=== PATIENT | female | born 1995 | race Caucasian/White ===

== ENCOUNTER → 2019-11-22 | Outpatient (CLI) | payer BC ==
[2019-11-22 10:49] LABS: HEMATOCRIT 37 % (35-52); HEMOGLOBIN 12.4 G/DL (11.5-16.0); MEAN CORPUSCULAR HEMOGLOBIN 30 PG (25-34); MEAN CORPUSCULAR HGB CONC 34 G/DL (32-36); MEAN CORPUSCULAR VOLUME 90 FL (80-99); WHITE BLOOD COUNT 9.6 10^3/uL (4.3-11.0)
[2019-11-22 10:50] LABS: BASOPHILS % (AUTO) 0 % (0-10); EOSINOPHILS % (AUTO) 2 % (0-10); LYMPHOCYTES # (AUTO) 1.6 X 10^3 (1.0-4.0); LYMPHOCYTES % (AUTO) 17 % (12-44); MEAN PLATELET VOLUME 11.9 FL (7.4-10.4); MONOCYTES # (AUTO) 0.5 X 10^3 (0.0-1.0); MONOCYTES % (AUTO) 5 % (0-12); NEUTROPHILS # (AUTO) 7.2 X 10^3 (1.8-7.8); NEUTROPHILS % (AUTO) 76 % (42-75); PLATELET COUNT 149 10^3/uL (130-400); RED CELL DISTRIBUTION WIDTH 11.9 % (10.0-14.5)
[2019-11-22 10:51] LABS: EOSINOPHILS # (AUTO) 0.2 10^3/uL (0.0-0.3)
== END ==
LOC: LAB FS 10:02
PROVIDERS: ATTEND Family Medicine
DX: Z34.00 Encounter for supervision of normal first pregnancy, unspecified trimester (principal)
CPT/HCPCS: 36415; 80055; 86703; 87088

== ENCOUNTER → 2019-12-20 | Outpatient (CLI) | payer BC | LOC: LABNPT 15:09 | PROVIDERS: ATTEND Family Medicine | DX: Z34.81 Encounter for supervision of other normal pregnancy, first trimester (principal); Z3A.00 Weeks of gestation of pregnancy not specified | CPT/HCPCS: 87491; 87591 ==

== ENCOUNTER → 2020-01-20 | Outpatient (CLI) | payer BC | LOC: LAB FS 10:02 | PROVIDERS: ATTEND Family Medicine | DX: O98.819 Other maternal infectious and parasitic diseases complicating pregnancy, unspecified trimester (principal) | CPT/HCPCS: 36415; 82105; 84702; 86336; 87491; 87591 ==

== ENCOUNTER → 2020-04-05 | Outpatient (CLI) | payer BC ==
[2020-04-05 09:40] LABS: HEMATOCRIT 34 % (35-52); HEMOGLOBIN 11.5 G/DL (11.5-16.0); MEAN CORPUSCULAR HEMOGLOBIN 32 PG (25-34); MEAN CORPUSCULAR HGB CONC 34 G/DL (32-36); MEAN CORPUSCULAR VOLUME 93 FL (80-99); MEAN PLATELET VOLUME 11.5 FL (7.4-10.4); NEUTROPHILS % (AUTO) 75 % (42-75); PLATELET COUNT 141 10^3/uL (130-400); WHITE BLOOD COUNT 10.4 10^3/uL (4.3-11.0)
[2020-04-05 09:41] LABS: BASOPHILS % (AUTO) 0 % (0-10); EOSINOPHILS # (AUTO) 0.3 10^3/uL (0.0-0.3); EOSINOPHILS % (AUTO) 3 % (0-10); LYMPHOCYTES # (AUTO) 1.7 X 10^3 (1.0-4.0); LYMPHOCYTES % (AUTO) 16 % (12-44); MONOCYTES # (AUTO) 0.6 X 10^3 (0.0-1.0); MONOCYTES % (AUTO) 5 % (0-12); NEUTROPHILS # (AUTO) 7.8 X 10^3 (1.8-7.8)
== END ==
LOC: LAB FS 08:58
PROVIDERS: ATTEND Family Medicine
DX: O09.893 Supervision of other high risk pregnancies, third trimester (principal); Z3A.00 Weeks of gestation of pregnancy not specified
CPT/HCPCS: 36415; 82950; 85025; 86780

== ENCOUNTER → 2020-06-01 | Outpatient (CLI) | payer BC | LOC: LAB FS 16:46 | PROVIDERS: ATTEND Family Medicine | DX: Z34.93 Encounter for supervision of normal pregnancy, unspecified, third trimester (principal); Z3A.00 Weeks of gestation of pregnancy not specified | CPT/HCPCS: 87081 ==

== ENCOUNTER 2020-06-14 05:36 | Outpatient (RCR) | payer BC ==
[~2020-06-14] VITALS: Ht 175.3 cm; Wt 86.8 kg
[2020-06-14] MEDS ORDERED: PNV1TABL9 PO (12:42)
== END 2020-06-14 12:48 | disposition home or self-care (01) ==
LOC: PREOP 05:36
PROVIDERS: ATTEND Obstetrics & Gynecology
DX: Z01.818 Encounter for other preprocedural examination (principal); O32.1XX0 Maternal care for breech presentation, not applicable or unspecified; Z3A.00 Weeks of gestation of pregnancy not specified

== ENCOUNTER → 2020-06-18 | Outpatient (CLI) | payer BC, MEDICAID ==
[~2020-06-18] MED LIST: ACHD5005 PO; DCS100C PO; IBUP-844 PO; PNV1TABL9 PO
== END ==
LOC: LAB FS 10:10
PROVIDERS: ATTEND Obstetrics & Gynecology
DX: Z01.812 Encounter for preprocedural laboratory examination (principal); O32.1XX0 Maternal care for breech presentation, not applicable or unspecified; Z3A.00 Weeks of gestation of pregnancy not specified; Z20.828 Contact with and (suspected) exposure to other viral communicable diseases
CPT/HCPCS: 87635

== ENCOUNTER 2020-06-20 06:05 | Inpatient (IN) | payer BC, MEDICAID ==
[~2020-06-20] VITALS: Ht 175.3 cm; Wt 88.9 kg
[2020-06-20] VITALS (8 sets, daily range): BP systolic 114–138; BP diastolic 72–95
--- NOTE | 2020-06-20 06:04 | NUR ---
BRI ALBRECHT presented to unit via ambulatory from ED, accompanied by staff and s.o., with c/o BREECH PRESENTATION for c/s. BRI ALBRECHT weighed, gowned, voided, and to bed. EFHM and TOCO applied, VS taken. BRI ALBRECHT oriented to bed controls, call light, TV, heat, and A/C controls.
[~2020-06-20 06:05] MED LIST changes: -ACHD5005 PO; +CITRIC ACID/SOB CIT (BICITRA) 30 ML UDC ONE; -DCS100C PO; +FAMOTIDINE 20MG/2ML IV (PEPCID) ONE; -IBUP-844 PO; +METOCLOPRAMIDE INJ 10 MG/2 ML (REGLAN) ONE; +ceFAZolin INJECTION 0 MG ONE
[2020-06-20] MEDS ORDERED: METOCLOPRAMIDE INJ 10 MG/2 ML (REGLAN) IV ONE (06:15)
[2020-06-20] MEDS ORDERED: LACTATED RINGERS 1,000 ML IV PRN (06:15)
[2020-06-20] MEDS ORDERED: FAMOTIDINE 20MG/2ML IV (PEPCID) IV ONE (06:15)
[2020-06-20] MEDS ORDERED: CITRIC ACID/SOB CIT (BICITRA) 30 ML UDC PO ONE (06:15)
[2020-06-20] MEDS ORDERED: CATHETER FLUSH 10 ML SYR IV PRN (06:15)
[2020-06-20] MEDS ORDERED: ceFAZolin INJECTION 1,000 MG in WATER (STERILE) FOR INJECTION 10 ML IV ONE (06:15)
[2020-06-20] MEDS: LACTATED RINGERS 1,000 ML IV PRN ×2 (06:40→07:15)
[2020-06-20 06:54] LABS: BASOPHILS % (AUTO) 0 % (0-10); EOSINOPHILS # (AUTO) 0.2 10^3/uL (0.0-0.3); EOSINOPHILS % (AUTO) 2 % (0-10); HEMATOCRIT 37 % (35-52); HEMOGLOBIN 12.3 g/dL (11.5-16.0); LYMPHOCYTES # (AUTO) 2.2 10^3/uL (1.0-4.0); LYMPHOCYTES % (AUTO) 16 % (12-44); MEAN CORPUSCULAR HEMOGLOBIN 31 pg (25-34); MEAN CORPUSCULAR HGB CONC 34 g/dL (32-36); MEAN CORPUSCULAR VOLUME 93 fL (80-99); MEAN PLATELET VOLUME 12.5 fL (9.0-12.2); MONOCYTES # (AUTO) 0.7 10^3/uL (0.0-1.0); MONOCYTES % (AUTO) 5 % (0-12); NEUTROPHILS # (AUTO) 10.5 10^3/uL (1.8-7.8); NEUTROPHILS % (AUTO) 77 % (42-75); PLATELET COUNT 135 10^3/uL (130-400); WHITE BLOOD COUNT 13.7 10^3/uL (4.3-11.0)
[2020-06-20] MEDS ORDERED: OXYTOCIN PRE-MIX DRIP 1,000 ML IV ONE (06:56)
[2020-06-20] MEDS ORDERED: KETOROLAC 30 MG/ML VIAL ONE (06:56)
[2020-06-20] MEDS ORDERED: ONDANSETRON 4 MG/2 ML (SDV) Z0FRAN ONE (06:56)
[2020-06-20] MEDS ORDERED: BUPIVACAINE 0.25% 30 ML (SENSORCAINE) VIAL ONE (06:56)
[2020-06-20] MEDS ORDERED: fentaNYL INJECTION 100 MCG/2 ML AMP ONE (07:07)
[2020-06-20] MEDS ORDERED: WATER (STERILE) FOR INJECTION 0 ML ONE (07:14)
--- NOTE | 2020-06-20 07:20 | History & Physical-OB ---
OB - Chief Complaint & HPI Date/Time Date of Admission: Date of Admission: Jun 20, 2020 at 06:05 Date seen by a Provider: Jun 20, 2020 Time Seen by a Provider: 07:05 Chief Complaint/History OB-Reason for Admission/Chief: Section Hx : 1 Hx Para: 0 Expected Date of Delivery: Jun 27, 2020 Gestational Age in Weeks: 39 Gestational Age in Days: 1 Indication for : malpresentation Admission Nurse Assessment Rev: Yes Allergies and Home Medications Allergies Coded Allergies: No Known Drug Allergies (Unverified , 06/20/20) Home Medications Pnv Cmb#21/Iron/Folic Acid 1 Each Tablet, 1 EACH PO DAILY, (Reported) Patient Home Medication List Home Medication List Reviewed: Yes OB - History Hx of Present Care: Yes Ultrasounds: Normal mid trimester US Obstetrical Complications: None Medical Complications: None Patient Past Medical History n/a Social History/Family History Recent Infectious Disease Expo: No Alcohol Use: Denies Use Recreational Drug Use: No Immunizations Date of Influenza Vaccine: Mar 29, 2020 OB - Admission Exam Physical Exam Vitals: Vital Signs 06/20/20 07:00 Temp 36.4 Pulse 71 Resp 18 B/P (MAP) 138/85 (102) Pulse Ox 99 O2 Delivery Room Air HEENT: NCAT Heart: Rhythm Normal Lungs: Clear Abdomen: Gravid Extremities: Normal Reflexes: Normal Accelerations: Accelerations Present Decelerations: No Decelerations Short Term Variability: Present Shelter Variability: Average (6-25) Contractions on Admission: >10 Minutes Apart Intensity: Mild Labs Laboratory Tests Test 06/20/20 06:40 Range/Units White Blood Count 13.7 H 4.3-11.0 10^3/uL Red Blood Count 3.94 3.80-5.11 10^6/uL Hemoglobin 12.3 11.5-16.0 g/dL Hematocrit 37 35-52 % Mean Corpuscular Volume 93 80-99 fL Mean Corpuscular Hemoglobin 31 25-34 pg Mean Corpuscular Hemoglobin Concent 34 32-36 g/dL Red Cell Distribution Width 12.2 10.0-14.5 % Platelet Count 135 130-400 10^3/uL Mean Platelet Volume 12.5 H 9.0-12.2 fL Immature Granulocyte % (Auto) 1 % Neutrophils (%) (Auto) 77 H 42-75 % Lymphocytes (%) (Auto) 16 12-44 % Monocytes (%) (Auto) 5 0-12 % Eosinophils (%) (Auto) 2 0-10 % Basophils (%) (Auto) 0 0-10 % Neutrophils # (Auto) 10.5 H 1.8-7.8 10^3/uL Lymphocytes # (Auto) 2.2 1.0-4.0 10^3/uL Monocytes # (Auto) 0.7 0.0-1.0 10^3/uL Eosinophils # (Auto) 0.2 0.0-0.3 10^3/uL Basophils # (Auto) 0.0 0.0-0.1 10^3/uL Immature Granulocyte # (Auto) 0.1 0.0-0.1 10^3/uL OB - Assessment/Plan/Diagnosis Assessment Assessment: section Admission Dx 24 yo @ 39 weeks Complete breech presentation Admission Status: Inpatient Order (span 2 midnights) Reason for Inpatient Admission: 39 week primary Plan Plan: Section TJ GONZALEZ DO Jun 20, 2020 07:20
--- NOTE | 2020-06-20 07:26 | Discharge Inst-Women's Service ---
Discharge Inst-Women's Serv Depart Medication/Instructions New, Converted or Re-Newed RX: RX on Chart Final Diagnosis POD 2 PLTCS Problems Reviewed?: Yes Consults/Follow Up Additional Follow Up: Yes Orders/Referrals Dr. Lopez in 7-[address] Neri in 6 weeks Activity Activity: Activity as Tolerated Driving Instructions: No Driving for 1 Week NO SMOKING: NO SMOKING Nothing Inside Vagina: No Douching, No [place], No Tampons Diet Discharge Diet: No Restrictions Symptoms to Report to : Bleeding Excessive, Pain Increased, Fever Over 101 Degrees F, Vaginal Bleeding Increase, Questions/Concerns For Any Problems or Questions: Contact Your Physician Skin/Wound Care Infection Signs and Symptoms: Increased Redness, Foul Odor of Wound, Increased Drainage, Skin Itchy or Has a Rash, Increased Swelling, Temperature Above 101 F Operative Area Clean and Dry: Keep Incision Clean/Dry Stitches/[place]/Dermabond: Dermabond, Care of Stitches Bathing Instructions: TJ Muñoz DO Jun 20, 2020 07:26
[2020-06-20] MEDS ORDERED: DCS100C PO (07:27)
[2020-06-20] MEDS ORDERED: IBUP-844 PO (07:27)
[2020-06-20] MEDS ORDERED: ACHD5005 PO (07:27)
[2020-06-20] MEDS ORDERED: OXYTOCIN PRE-MIX DRIP 500 ML IV SCH (07:30)
[2020-06-20] MEDS ORDERED: MEASLES,MUMPS,RUBELLA 1 EA INJ SC SCH (07:30)
[2020-06-20] MEDS ORDERED: ONDANSETRON 4 MG/2 ML (SDV) Z0FRAN IVP PRN ×2 (07:30→08:45)
[2020-06-20] MEDS ORDERED: TETANUS,DIPTH,PERTUSS P/F (BOOSTRIX) 0.5 ML VIAL IM SCH (07:30)
[2020-06-20] MEDS ORDERED: morphine INJ 10 MG/ML 1ML (SYR OR VIAL) IVP ONE (08:45)
[2020-06-20] MEDS ORDERED: diphenhydrAMINE 50 MG/ML INJ (BENADRYL) IV PRN (08:45)
[2020-06-20] MEDS ORDERED: METOCLOPRAMIDE INJ 10 MG/2 ML (REGLAN) IV PRN (08:45)
[2020-06-20] MEDS ORDERED: NALOXONE 0.4 MG/ML 1 ML (NARCAN) VIAL IV PRN ×2 (08:45)
[2020-06-20] MEDS ORDERED: ONDANSETRON 4 MG/2 ML (SDV) Z0FRAN IV PRN (08:45)
--- NOTE | 2020-06-20 12:27 | OPERATIVE REPORT ---
DATE OF SERVICE: PREOPERATIVE DIAGNOSES: 1. A 24-year-old G1, P0 at 39 weeks 1 day gestation. 2. Malpresentation with complete breech presentation. POSTOPERATIVE DIAGNOSES. 1. A 24-year-old G1, P0 at 39 weeks 1 day gestation. 2. Malpresentation with complete breech presentation. PROCEDURE: Primary low transverse section. SURGEON: Da Gonzalez DO ANESTHESIA: Spinal. ESTIMATED BLOOD LOSS: 400 mL. URINE OUTPUT: 200 mL clear at the end of the procedure. FLUIDS: 800 mL lactated Ringer's solution. FINDINGS: A live female weighing 7 pounds 15 ounces, Apgars of 9 and 9. Grossly normal appearing uterus, bilateral fallopian tubes and ovaries. SPECIMEN SENT: None. INDICATIONS FOR PROCEDURE: This 24-year-old female was a consultation to me from Dr. Neri for breech presentation and in her preoperative visit, we reviewed the risk of breech vaginal delivery and why in modern medicine, it is common practice to proceed with for breech presentation due to these risk to the infant. Risk of the was reviewed with the patient in detail and after all of her questions were answered, consent was obtained in the preoperative area, the patient was taken to the operating room. OPERATIVE REPORT IN DETAIL: Once in the operating room, spinal anesthesia was found to be adequate. She was placed in supine position with leftward tilt, prepped and draped in normal sterile fashion. A timeout was performed, and anesthesia was tested. I then make a Pfannenstiel skin incision and carried down to underlying fascia using Bovie cautery. Fascial incision extended laterally using Bovie cautery. Superior aspect of the fascial incision was then grasped with Eleanor clamps, tented up and dissected off the underlying rectus muscles. The inferior aspect of the fascial incision was then grasped with Eleanor clamps, tented up and dissected off the underlying rectus muscles. The rectus muscles were then dissected down the midline exposing the peritoneum, which I entered bluntly and extended using blunt traction. Carlos ring retractor was placed in the peritoneal incision, which offers excellent lateral sidewall retraction. I then identified the lower uterine segment, which was found to be thinned out and make a low transverse incision to the vesicouterine peritoneum and bluntly dissected off the lower uterine segment, creating a bladder flap. I then proceeded with my myotomy until membranes were visualized, at which point I extended the uterine incision laterally and superiorly using bandage scissors. Amniotomy was performed in the process of doing this, clear fluid was noted. The infant was found in the complete breech presentation. I delivered the 's legs and buttocks through the incision first up to the upper torso at which point I delivered the arms with the facing towards the maternal back by sweeping the arms across the chest still with the facing downward, I delivered the infant's head by elevating the body and flexing the head through the incision, at which point the nares and oropharynx were bulb suctioned. The was then brought to the operative field with cord doubly clamped and cut and was handed off to waiting nurses in attendance. Cord blood was collected. Three-vessel cord with intact placenta was delivered spontaneously thereafter. IV Pitocin was initiated to facilitate uterine contraction. Uterine fundus confirmed by manual massage. The uterus was then exteriorized and cleared off endometrial clots and debris. I then proceeded with closing the uterine incision using 0 Vicryl suture in running locked fashion. Second layer of imbricating 0 Monocryl was placed. Excellent hemostasis was noted after doing this. I then placed the uterus back in the pelvis and copiously irrigated the pelvis using normal saline. No active bleeding noted from any of my dissection planes. I placed Interceed antiadhesive over my low transverse incision. I removed the Carlos ring retractor and proceeded with closing the peritoneum using 3-0 Vicryl suture in running fashion. Rectus muscle reapproximated using 3-0 Vicryl suture in interrupted fashion. The fascia was reapproximated using 0 Vicryl suture in a running fashion. Subcutaneous tissue was reapproximated using 3-0 plain in an interrupted subcutaneous stitch and skin reapproximated using 4-0 Monocryl running subcuticular. Dermabond was applied and sterile dressing was adhesed over the incision as well. The patient tolerated the procedure well and was taken to recovery area in stable condition. Lap and sponge counts were correct at the end of procedure. Instrument counts correct as well. Two grams of Ancef given preoperatively for infection prophylaxis. Job ID: [id number] DocumentID: [id number] Dictated Date: 06/20/2020 08:48:53 Real Estate Development Manager Date: 06/20/2020 12:26:28 Dictated By: DA GONZALEZ, DO
[2020-06-20] MEDS ORDERED: CATHETER FLUSH 10 ML SYR IV SCH (14:00)
[2020-06-20] MEDS: KETOROLAC 30 MG/ML VIAL IV SCH ×2 (14:16→19:53)
--- NOTE | 2020-06-20 14:30 | NUR ---
Pt up to bathroom. Voided 700ml. +pericare, new gown, liner and panties on. Pt to chair and attempting to breast feed infant. No further needs at this time.
[2020-06-20] MEDS: HYDROcodone/APAP 5 MG/325 MG (LORTAB) TAB PO PRN (17:54)
[2020-06-20] MEDS: DOCUSATE SODIUM 100 MG (COLACE) CAP PO SCH (19:53)
[2020-06-21 00:43] VITALS: BP 133/70
[2020-06-21] MEDS: HYDROcodone/APAP 5 MG/325 MG (LORTAB) TAB PO PRN ×3 (00:54→15:45)
[2020-06-21 03:33] VITALS: BP 129/77
[2020-06-21] MEDS: KETOROLAC 30 MG/ML VIAL IV SCH (03:33)
[2020-06-21 05:43] LABS: BASOPHILS % (AUTO) 0 % (0-10); EOSINOPHILS # (AUTO) 0.2 10^3/uL (0.0-0.3); EOSINOPHILS % (AUTO) 1 % (0-10); HEMATOCRIT 32 % (35-52); HEMOGLOBIN 10.7 g/dL (11.5-16.0); LYMPHOCYTES # (AUTO) 1.6 10^3/uL (1.0-4.0); LYMPHOCYTES % (AUTO) 12 % (12-44); MEAN CORPUSCULAR HEMOGLOBIN 32 pg (25-34); MEAN CORPUSCULAR HGB CONC 33 g/dL (32-36); MEAN CORPUSCULAR VOLUME 95 fL (80-99); MEAN PLATELET VOLUME 12.4 fL (9.0-12.2); MONOCYTES # (AUTO) 0.7 10^3/uL (0.0-1.0); MONOCYTES % (AUTO) 5 % (0-12); NEUTROPHILS # (AUTO) 10.7 10^3/uL (1.8-7.8); NEUTROPHILS % (AUTO) 81 % (42-75); PLATELET COUNT 112 10^3/uL (130-400); WHITE BLOOD COUNT 13.3 10^3/uL (4.3-11.0)
[2020-06-21 09:00] VITALS: BP 123/69
[2020-06-21] MEDS: DOCUSATE SODIUM 100 MG (COLACE) CAP PO SCH ×2 (09:01→20:58)
[2020-06-21] MEDS: IBUPROFEN 600 MG (MOTRIN) TAB PO SCH ×3 (09:01→20:57)
--- NOTE | 2020-06-21 10:49 | Anesthesia-Regional Post-Op ---
Regional Patient Condition Mental Status: Alert, Oriented x3 Circulation: Same as Pre-Op Headache: Absent Sensation: Full Recovery Motor Block: Absent Post Op Complications Complications None Follow Up Care/Instructions Patient Instructions None needed. Anesthesia/Patient Condition Patient is doing well, no complaints, stable vital signs, no apparent adverse anesthesia problems. No complications reported per nursing. KANA MODI CRNA Jun 21, 2020 10:49
--- NOTE | 2020-06-21 12:08 | NUR ---
Dr Lopez here to see pt. No new orders rec'd.
--- NOTE | 2020-06-21 13:23 | Postpartum Progress Note ---
Note Note Day # 1 Subjective: Patient is without complaints. Ambulating, voiding. Tolerating a regular diet without nausea or vomiting. Normal lochia. Pain is well controlled with oral pain medications. Objective: Physical Exam: General - Alert and oriented, no apparent distress Abdomen - Soft, appropriately tender to palpation, non-distended, fundus firm at umbilicus Extremities - no edema, negative Nithya's bilaterally Incision- c/d/i Assessment: POD 1 PLTCS Acute blood loss anemia Plan: Routine care. Encourage breast feeding. Encourage ambulation. Ferrous sulfate supplementation. Plan for discharge tomorrow Vitals - Labs Vital Signs - I&O Vital Signs Date Time Temp Pulse Resp B/P (MAP) Pulse Ox O2 Delivery O2 Flow Rate FiO2 06/21/20 09:00 36.5 85 18 123/69 (87) 97 Room Air 06/21/20 03:33 36.6 77 16 129/77 (94) 97 06/21/20 00:43 36.8 79 16 133/70 (91) 99 06/20/20 19:54 36.6 71 16 138/95 (109) 97 06/20/20 17:52 36.6 73 16 137/78 (97) I & O 06/21/20 07:00 Intake Total 50 ml Output Total 600 ml Balance -550 ml Labs Laboratory Tests 06/21/20 05:09: White Blood Count 13.3H, Red Blood Count 3.40L, Hemoglobin 10.7L, Hematocrit 32L , Mean Corpuscular Volume 95, Mean Corpuscular Hemoglobin 32, Mean Corpuscular Hemoglobin Concent 33, Red Cell Distribution Width 12.2, Platelet Count 112L, Mean Platelet Volume 12.4H, Immature Granulocyte % (Auto) 1, Neutrophils (%) (Auto) 81H, Lymphocytes (%) (Auto) 12, Monocytes (%) (Auto) 5, Eosinophils (%) (Auto) 1, Basophils (%) (Auto) 0, Neutrophils # (Auto) 10.7H, Lymphocytes # (Auto) 1.6, Monocytes # (Auto) 0.7, Eosinophils # (Auto) 0.2, Basophils # (Auto) 0.0, Immature Granulocyte # (Auto) 0.1 TJ GONZALEZ DO Jun 21, 2020 13:23
--- NOTE | 2020-06-21 15:15 | NUR ---
To room for VS and motrin. Pt asleep in bed with laying in bed next to her. Pt and S.O. educated on dangers of cosleeping and encouraged to put infant in crib when sleeping.
[2020-06-21 15:22] VITALS: BP 124/80
--- NOTE | 2020-06-21 15:50 | NUR ---
pain pill given per pt request. Pt assisted to rocking chair to breastfeed. Encouraged pt to ambulate halls when finished feeding
[2020-06-21] MEDS ORDERED: SIMETHICONE 80 MG (MYLICON) CHEW PO PRN (16:30)
[2020-06-21 21:00] VITALS: BP 126/78
--- NOTE | 2020-06-22 01:00 | NUR ---
Nurse at patient bedside. Pt. is sleeping soundly. Breaths are even and unlabored. is asleep in open air crib, on her back.
[2020-06-22 02:49] VITALS: BP 120/76
[2020-06-22] MEDS: IBUPROFEN 600 MG (MOTRIN) TAB PO SCH ×2 (02:49→10:27)
--- NOTE | 2020-06-22 08:45 | Progress Note ---
Standard Progress Note Progress Notes/Assess & Plan Date Seen by a Provider: Jun 22, 2020 Time Seen by a Provider: 08:44 Progress/Assessment & Plan This patient is without complaint. She is ambulating, voiding, tolerating oral intake well and has good pain control. Patient is requesting discharge home. Vital Signs Date Time Temp Pulse Resp B/P (MAP) Pulse Ox O2 Delivery O2 Flow Rate FiO2 06/22/20 02:49 36.2 69 18 120/76 (91) 98 Room Air 06/21/20 21:00 36.4 66 18 126/78 (94) 98 Room Air 06/21/20 15:22 35.8 86 18 124/80 (95) 97 Room Air 06/21/20 09:00 36.5 85 18 123/69 (87) 97 Room Air Vital signs are stable. Patient is afebrile. The abdomen is benign. Extremities show no clubbing or cyanosis. There is no Homans' sign. Assessment and plan postoperative day #2 status post primary delivery doing well. Plan is for discharge home with follow-up in clinic Final Diagnosis Primary delivery JEANA OROURKE MD Jun 22, 2020 08:45
[2020-06-22 10:25] VITALS: BP 125/80
[2020-06-22] MEDS: HYDROcodone/APAP 5 MG/325 MG (LORTAB) TAB PO PRN (10:27)
[2020-06-22] MEDS: DOCUSATE SODIUM 100 MG (COLACE) CAP PO SCH (10:27)
[2020-06-22] MEDS ORDERED: polyethylene glycoL POWDER 17 GM (MIRALAX) PACK PO ONE (10:30)
--- NOTE | 2020-06-22 14:25 | NUR ---
BRI ALBRECHT demonstrates understanding of discharge instructions and accurately returns instructions upon questioning. Copy of Post-Discharge Instructions and Medication Discharge Instructions given to patient. BRI ALBRECHT is able to manage continuing needs after discharge. Patients belongings returned to patient. Skin dry and intact; no breakdown noted. Patient discharged from 330- on 06-22-20 at 1425. BRI ALBRECHT left floor via w/c, accompanied by staff and s/o.
== END 2020-06-22 13:25 | disposition home or self-care (01) | DRG 787 ==
LOC: LDRP 06:05
PROVIDERS: ADMIT Obstetrics & Gynecology; ATTEND Obstetrics & Gynecology
PROC: 10D00Z1 Extraction of Products of Conception, Low, Open Approach (ICD-10-PCS; principal; 2020-06-20 07:20)
DX: O32.1XX0 Maternal care for breech presentation, not applicable or unspecified (principal); D62 Acute posthemorrhagic anemia; Z3A.39 39 weeks gestation of pregnancy; Z37.0 Single live birth; O90.81 Anemia of the puerperium
CPT/HCPCS: 36415; 85025; 86850; 86900; 86901; 87081; 94664